=== PATIENT | male | born 1985 | race Caucasian/White ===

== ENCOUNTER 2018-09-22 23:16 | Emergency (ER) | payer OTHER ==
[~2018-09-22] VITALS: Ht 172.7 cm; Wt 81.8 kg
[2018-09-22 23:23] VITALS: BP 136/98; PULSE 71; RESP 18; Ht 172.7 cm; Wt 81.8 kg
[2018-09-22] MEDS ORDERED: IBUPROFEN 800 MG TAB PO ONE (23:30)
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
== END 2018-09-23 00:24 | disposition home or self-care (01) ==
LOC: E/R 23:16
DX: R51 Headache (principal)
CPT/HCPCS: 99282